=== PATIENT | female | born 1960 | race Caucasian/White ===

== ENCOUNTER → 2020-02-04 | Outpatient (CLI) | payer BC | LOC: MC.RAD 12:57 | DX: Z12.31 Encounter for screening mammogram for malignant neoplasm of breast (principal); N64.89 Other specified disorders of breast; Z98.82 Breast implant status ==

== ENCOUNTER → 2020-02-10 | Outpatient (CLI) | payer BC | LOC: MC.RAD 13:28 | DX: N64.89 Other specified disorders of breast (principal) ==

== ENCOUNTER → 2020-08-17 | Outpatient (CLI) | payer BC | LOC: MHCPAIN 13:45 | DX: M47.812 Spondylosis without myelopathy or radiculopathy, cervical region (principal); M54.2 Cervicalgia; R51.9 Headache, unspecified; G89.29 Other chronic pain | CPT/HCPCS: G0463 ==

== ENCOUNTER → 2020-08-26 | Outpatient (CLI) | payer BC | LOC: MHCPAIN 10:12 | DX: M47.812 Spondylosis without myelopathy or radiculopathy, cervical region (principal); M54.2 Cervicalgia; R51.9 Headache, unspecified ==

== ENCOUNTER → 2020-09-01 | Outpatient (CLI) | payer BC | LOC: MHCPAIN 10:39 | DX: M47.812 Spondylosis without myelopathy or radiculopathy, cervical region (principal); M54.2 Cervicalgia; R51.9 Headache, unspecified | CPT/HCPCS: G0463 ==

== ENCOUNTER → 2020-09-16 | Outpatient (CLI) | payer BC | LOC: MHCPAIN 08:42 | DX: M47.812 Spondylosis without myelopathy or radiculopathy, cervical region (principal); M54.2 Cervicalgia; R51.9 Headache, unspecified ==

== ENCOUNTER → 2020-10-14 | Outpatient (CLI) | payer BC | LOC: MHCPAIN 09:00 | DX: M47.812 Spondylosis without myelopathy or radiculopathy, cervical region (principal); M54.2 Cervicalgia; R51.9 Headache, unspecified | CPT/HCPCS: G0463; J1100; J2250; J3010 ==

== ENCOUNTER → 2020-12-08 | Outpatient (CLI) | payer BC | LOC: MHCPAIN 09:48 | DX: M47.812 Spondylosis without myelopathy or radiculopathy, cervical region (principal); M54.2 Cervicalgia; R51.9 Headache, unspecified | CPT/HCPCS: G0463 ==

== ENCOUNTER → 2021-01-06 | Outpatient (CLI) | payer BC | LOC: MHCPAIN 09:54 | DX: M47.812 Spondylosis without myelopathy or radiculopathy, cervical region (principal); M54.2 Cervicalgia; R51.9 Headache, unspecified ==

== ENCOUNTER → 2021-01-27 | Outpatient (CLI) | payer BC | LOC: MHCPAIN 09:20 | DX: M47.812 Spondylosis without myelopathy or radiculopathy, cervical region (principal); M54.2 Cervicalgia; R51.9 Headache, unspecified | CPT/HCPCS: G0463 ==

== ENCOUNTER → 2021-02-24 | Outpatient (CLI) | payer BC | LOC: MC.RAD 10:54 | DX: Z12.31 Encounter for screening mammogram for malignant neoplasm of breast (principal) ==

== ENCOUNTER → 2021-03-03 | Outpatient (CLI) | payer BC | LOC: MHCPAIN 11:47 | DX: M47.812 Spondylosis without myelopathy or radiculopathy, cervical region (principal); M54.2 Cervicalgia; R51.9 Headache, unspecified | CPT/HCPCS: G0463; J1100; J2250; J3010 ==

== ENCOUNTER → 2021-05-11 | Outpatient (CLI) | payer BC | LOC: MHCPAIN 10:07 | DX: M47.812 Spondylosis without myelopathy or radiculopathy, cervical region (principal); M54.2 Cervicalgia; G89.29 Other chronic pain; R51.9 Headache, unspecified | CPT/HCPCS: G0463 ==

== ENCOUNTER → 2021-05-12 | Outpatient (CLI) | payer BC | LOC: COL.RAD 11:58 | DX: M50.30 Other cervical disc degeneration, unspecified cervical region (principal) ==

== ENCOUNTER → 2021-09-13 | Outpatient (CLI) | payer BC | LOC: COL.RAD 08-18 13:15 | DX: M47.812 Spondylosis without myelopathy or radiculopathy, cervical region (principal); M50.323 Other cervical disc degeneration at C6-C7 level; M48.02 Spinal stenosis, cervical region ==

== ENCOUNTER → 2021-09-15 | Outpatient (CLI) | payer BC | LOC: MHCPAIN 09:51 | DX: M47.817 Spondylosis without myelopathy or radiculopathy, lumbosacral region (principal); M53.3 Sacrococcygeal disorders, not elsewhere classified; M54.16 Radiculopathy, lumbar region | CPT/HCPCS: G0463; J1100; Q9967 ==

== ENCOUNTER → 2021-10-18 | Outpatient (CLI) | payer BC | LOC: MHCPAIN 14:48 | DX: M47.892 Other spondylosis, cervical region (principal); M54.2 Cervicalgia; G44.86 Cervicogenic headache | CPT/HCPCS: G0463 ==

== ENCOUNTER → 2021-12-08 | Outpatient (CLI) | payer BC | LOC: MHCPAIN 08:22 | DX: M47.812 Spondylosis without myelopathy or radiculopathy, cervical region (principal); M54.2 Cervicalgia; G44.86 Cervicogenic headache | CPT/HCPCS: G0463; J0461; J1100; J2250; J3010 ==

== ENCOUNTER → 2023-01-23 | Outpatient (CLI) | payer BC | LOC: MHCPAIN 09:49 | DX: M54.16 Radiculopathy, lumbar region (principal); M54.2 Cervicalgia; G44.86 Cervicogenic headache | CPT/HCPCS: G0463 ==

== ENCOUNTER → 2024-01-02 | Outpatient (CLI) | payer BC | LOC: MC.RAD 13:42 | DX: Z12.31 Encounter for screening mammogram for malignant neoplasm of breast (principal) ==

== ENCOUNTER → 2024-01-30 | Outpatient (CLI) | payer BC | LOC: MHCPAIN 14:41 | DX: M43.17 Spondylolisthesis, lumbosacral region (principal); M48.061 Spinal stenosis, lumbar region without neurogenic claudication; M71.38 Other bursal cyst, other site; M43.12 Spondylolisthesis, cervical region; M47.812 Spondylosis without myelopathy or radiculopathy, cervical region | CPT/HCPCS: G0463 ==